=== PATIENT | male | born 1980 | race Caucasian/White ===

== ENCOUNTER 2018-02-11 16:07 | Emergency (ER) | payer OTHER ==
--- NOTE | 2018-02-11 17:51 | RADIOLOGY REPORT (SQ) ---
EXAM DESCRIPTION: CHEST 2 VIEWS COMPLETED DATE/TIME: 02/11/2018 5:38 pm REASON FOR STUDY: sob/cough COMPARISON: None. EXAM PARAMETERS: NUMBER OF VIEWS: two views TECHNIQUE: Digital Frontal and Lateral radiographic views of the chest acquired. RADIATION DOSE: NA LIMITATIONS: none FINDINGS: LUNGS AND PLEURA: No opacities, masses or pneumothorax. No pleural effusion. MEDIASTINUM AND HILAR STRUCTURES: No masses or contour abnormalities. HEART AND VASCULAR STRUCTURES: Heart normal size. No evidence for failure. BONES: No acute findings. HARDWARE: None in the chest. OTHER: No other significant finding. IMPRESSION: NO ACUTE RADIOGRAPHIC FINDING IN THE CHEST. TECHNICAL DOCUMENTATION: JOB ID: [id number] [employer]- All Rights Reserved Reading location - IP/workstation name: [email or web address]
[2018-02-11 18:58] LABS: ABSOLUTE EOSINOPHILS # (AUTO) 0.5 10^3/uL (0.0-0.6); ABSOLUTE LYMPHOCYTES (AUTO) 1.9 10^3/uL (0.5-4.7); ABSOLUTE MONOCYTES (AUTO) 0.6 10^3/uL (0.1-1.4); ABSOLUTE NEUT (AUTO) 2.8 10^3/uL (1.7-8.2); BASOPHILS % (AUTO) 0.8 % (0-2); EOSINOPHILS % (AUTO) 7.9 % (0-6); HEMATOCRIT 39.6 % (37.9-51.0); HEMOGLOBIN 13.6 g/dL (13.5-17.0); LYMPHOCYTES % (AUTO) 32.8 % (13-45); MEAN CORPUSCULAR HEMOGLOBIN 28.9 pg (27.0-33.4); MEAN CORPUSCULAR HGB CONC 34.3 g/dL (32.0-36.0); MEAN CORPUSCULAR VOLUME 84 fl (80-97); MONOCYTES % (AUTO) 10.3 % (3-13); PLATELET COUNT 265 10^3/uL (150-450); RED BLOOD COUNT 4.71 10^6/uL (4.35-5.55); RED CELL DISTRIBUTION WIDTH 12.7 % (11.5-14.0); SEGMENTED NEUTROPHILS % (AUTO) 48.2 % (42-78); TOTAL CELLS COUNTED % (AUTO) 100 %; WHITE BLOOD COUNT 5.8 10^3/uL (4.0-10.5)
[2018-02-11 19:14] LABS: ANION GAP 13 (5-19); BLOOD UREA NITROGEN 19 mg/dL (7-20); CALCIUM 9.8 mg/dL (8.4-10.2); CARBON DIOXIDE 30 mmol/L (22-30); CHLORIDE 101 mmol/L (98-107); GLUCOSE 95 mg/dL (75-110); POTASSIUM 3.2 mmol/L (3.6-5.0); SODIUM 144.1 mmol/L (137-145)
--- NOTE | 2018-02-11 19:47 | ER Document Report ---
ED Blood Pressure Problem - General Chief Complaint: High Blood Pressure Stated Complaint: BLOOD PRESSURE ISSUE Time Seen by Provider: 02/11/18 17:32 Mode of Arrival: Ambulatory Information source: Patient Notes: Patient was referred from his family's doctor's office due to an elevated blood pressure of 190/120. He received 0.2 of clonidine however blood pressure was not significantly decreased the patient was referred here to the emergency department. Patient denies any headache. He states over the last couple of days she has had some cough and congestion and shortness of breath. He states this was the main reason he went to his family physician. Symptoms have been intermittent. Nothing makes them better or worse. There is no known radiation symptoms. They have been mild to moderate. TRAVEL OUTSIDE OF THE [place] IN LAST 30 DAYS: No - Related Data Allergies/Adverse Reactions: No Known Allergies Allergy (Unverified 02/11/18 16:12) Past Medical History - General Information source: Patient - Social History Smoking Status: Never Smoker Frequency of alcohol use: None Drug Abuse: None Family History: Reviewed & Not Pertinent Patient has suicidal ideation: No Patient has homicidal ideation: No - Past Medical History Cardiac Medical History: Reports: Hx Hypertension Renal/ Medical History: Denies: Hx Peritoneal Dialysis Review of Systems - Review of Systems Constitutional: denies: Chills, Fever Cardiovascular: denies: Chest pain, Palpitations Respiratory: Cough, Short of breath -: Yes All other systems reviewed and negative Physical Exam - Vital signs Vitals: Temp Pulse Resp BP Pulse Ox 97.9 F 73 16 170/98 H 96 02/11/18 16:36 02/11/18 16:36 02/11/18 16:36 02/11/18 16:36 02/11/18 16:36 Interpretation: Normal, Hypertensive - General General appearance: Appears well, Alert - HEENT Head: Normocephalic, Atraumatic Eyes: Normal Pupils: PERRL - Respiratory Respiratory status: No respiratory distress Chest status: Nontender Breath sounds: Normal Chest palpation: Normal - Cardiovascular Rhythm: Regular Heart sounds: Normal auscultation Murmur: No - Abdominal Inspection: Normal Distension: No distension Bowel sounds: Normal Tenderness: Nontender Organomegaly: No organomegaly - Back Back: Normal, Nontender - Extremities General upper extremity: Normal inspection, Nontender, Normal color, Normal ROM , Normal temperature General lower extremity: Normal inspection, Nontender, Edema, Normal color, Normal ROM, Normal temperature, Normal weight bearing. No: Giuseppe's sign - Neurological Neuro grossly intact: Yes Cognition: Normal Orientation: AAOx4 Deerton Coma Scale Eye Opening: Spontaneous [place] Coma Scale Verbal: Oriented Saman Coma Scale Motor: Obeys Commands Deerton Coma Scale Total: 15 Speech: Normal Motor strength normal: LUE, RUE, LLE, RLE Sensory: Normal - Psychological Associated symptoms: Normal affect, Normal mood - Skin Skin Temperature: Warm Skin Moisture: Dry Skin Color: Normal Course - Re-evaluation Re-evalutation: 02/11/18 19:44 Some of patient symptoms would be consistent with early CHF. These include shortness of breath, congestion, elevated blood pressure and an elevated BNP. I am going to start the patient on a low-dose Lasix and have him follow-up with his family physician. - Vital Signs Vital signs: Temp Pulse Resp BP Pulse Ox 97.9 F 73 16 170/98 H 96 02/11/18 16:36 02/11/18 16:36 02/11/18 16:36 02/11/18 16:36 02/11/18 16:36 - Laboratory Result Diagrams: 02/11/18 18:35 02/11/18 18:35 Laboratory results interpreted by me: 02/11/18 02/11/18 02/11/18 18:35 18:35 18:35 Eosinophils % 7.9 H Potassium 3.2 L Creatinine 1.28 H NT-Pro-B Natriuret Pep 913 H - Diagnostic Test Radiology reviewed: Image reviewed, Reports reviewed - I reviewed both images of the two-view chest x-ray. No evidence of acute pathology. Discharge - Discharge Clinical Impression: CHF (congestive heart failure) Qualifiers: Heart failure type: unspecified Heart failure chronicity: acute Qualified Code( s): I50.9 - Heart failure, unspecified Condition: Stable Disposition: HOME, SELF-CARE Instructions: High Blood Pressure, Requiring Treatment ([facility]), Congestive Heart Failure ([facility]), Lasix Additional Instructions: Please call your primary care physician first thing in the morning. Please tell him that your BNP was elevated to 900. Please take your labs with you to see her family physician. Please discuss possible cardiology referral. Prescriptions: Furosemide [Lasix 20 mg Tablet] 20 mg PO QAM #30 tablet Forms: Return to Work
[2018-02-11 20:01] VITALS: BP 180/98
== END 2018-02-11 20:01 | disposition home or self-care (01) ==
LOC: ER 16:07
DX: I11.0 Hypertensive heart disease with heart failure (principal); I50.9 Heart failure, unspecified; R05 Cough; R06.02 Shortness of breath
CPT/HCPCS: 36415; 71046; 80048; 83880; 85025; 99283

== ENCOUNTER 2020-08-31 16:28 | Emergency (ER) | payer OTHER ==
[2020-08-31] MEDS ORDERED: OXYMETAZOLINE HCL 0.05% NASAL SPRAY 15 ML BOTTLE NASL ONE (16:44)
--- NOTE | 2020-08-31 16:48 | ER Document Report ---
ED Medical Screen (RME) - General Stated Complaint: NOSE BLEED Time Seen by Provider: 08/31/20 16:42 Mode of Arrival: Ambulatory Information source: Patient Notes: 38-year-old male patient presents emergency department chief complaint of nosebleed. Patient reports he has been under a lot of stress over the last week. He had a nosebleed last week. Today he had another nosebleed while he was at work. He states he went to the urgent care where they found him to have significantly elevated blood pressure. He does have a history of hypertension, he is compliant with his hypertension medications. He denies any chest pain or shortness of breath. He does report a mild headache for the last few days. Again he reports significant stressors at home and work. Patient has some packing in place that was placed by urgent care, he states that did not put any Afrin in his nose as the urgent care did not have any. There is a lot of dried blood around his nose, dressing and short. I have greeted and performed a rapid initial assessment of this patient. A comprehensive ED assessment and evaluation of the patient, analysis of test results and completion of the medical decision making process will be conducted by additional ED providers. I have specifically instructed the patient or family members with the patient to immediately return to any nursing staff should anything change in the patient's condition or with their chief complaint. TRAVEL OUTSIDE OF THE [place] IN LAST 30 DAYS: No - Related Data Allergies/Adverse Reactions: No Known Allergies Allergy (Unverified 02/11/18 16:12) Past Medical History - Past Medical History Cardiac Medical History: Reports: Hx Hypertension Renal/ Medical History: Denies: Hx Peritoneal Dialysis Physical Exam - Vital signs Vitals: Temp Pulse Resp BP Pulse Ox 98.1 F 80 18 210/128 H 99 08/31/20 16:31 08/31/20 16:31 08/31/20 16:31 08/31/20 16:31 08/31/20 16:31 Course - Vital Signs Vital signs: Temp Pulse Resp BP Pulse Ox 98.1 F 80 18 210/128 H 99 08/31/20 16:31 08/31/20 16:31 08/31/20 16:31 08/31/20 16:31 08/31/20 16:31
[2020-08-31] MEDS ORDERED: CLONIDINE HCL 0.1 MG TABLET PO ONE (17:50)
[2020-08-31 19:29] VITALS: BP 216/105
[2020-08-31] MEDS ORDERED: DEXAMETHASONE SOD PHOS INJ 10 MG/1 ML VIAL IV ONE (19:47)
[2020-08-31] MEDS ORDERED: IPRATROPIUM/ALBUTEROL 0.5-2.5 MG/3 ML AMPUL NEB ONE (19:48)
--- NOTE | 2020-08-31 20:15 | ER Document Report ---
ED ENT - General Chief Complaint: Nose Bleed Stated Complaint: NOSE BLEED Time Seen by Provider: 08/31/20 16:42 Mode of Arrival: Ambulatory Information source: Patient, Relative Notes: Patient is a 40-year-old male comes emergency room with a complaint of epistasis. Patient states that it started right after school. 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 Patient does state that he is under lots of stress recently had a little bit of a nosebleed 2 days ago but it went away on its own. Patient also noted to have a history of hypertension. Has been noted to have difficulty controlling it. Patient also has not taken his blood pressure medication today. Patient denies any known traumatic events to the right nare. He currently sees a space studies faculty member for his blood pressure and is due to follow-up with him soon. And he also has a primary care provider that he sees. He currently takes Benicar, labetalol and Lasix. Patient does not smoke drink or do drugs. TRAVEL OUTSIDE OF THE [place] IN LAST 30 DAYS: No - HPI Patient complains to provider of: Nose problem Onset: Just prior to arrival Onset/Duration: Sudden Severity: Mild Pain Level: 2 Context: denies: Injury, Travel Location of pain: Nose Associated symptoms: Nose bleed Similar symptoms previously: No Recently seen / treated by doctor: No - Related Data Allergies/Adverse Reactions: No Known Allergies Allergy (Verified 08/31/20 17:02) Past Medical History - General Information source: Patient - Social History Smoking Status: Never Smoker Cigarette use (# per day): No Chew tobacco use (# tins/day): No Smoking Education Provided: No Frequency of alcohol use: None Drug Abuse: None Lives with: Family Family History: Reviewed & Not Pertinent Patient has homicidal ideation: No - Past Medical History Cardiac Medical History: Reports: Hx Hypertension Renal/ Medical History: Denies: Hx Peritoneal Dialysis Review of Systems - Review of Systems Constitutional: No symptoms reported EENT: See HPI, Other - Epistaxis Cardiovascular: No symptoms reported Respiratory: No symptoms reported Gastrointestinal: No symptoms reported Genitourinary: No symptoms reported Male Genitourinary: No symptoms reported Musculoskeletal: No symptoms reported Skin: No symptoms reported Hematologic/Lymphatic: No symptoms reported Neurological/Psychological: No symptoms reported -: Yes All other systems reviewed and negative Physical Exam - Vital signs Vitals: Temp Pulse Resp BP Pulse Ox 98.1 F 80 18 210/128 H 99 08/31/20 16:31 08/31/20 16:31 08/31/20 16:31 08/31/20 16:31 08/31/20 16:31 Interpretation: Hypertensive - Notes Notes: PHYSICAL EXAMINATION: GENERAL: Well-appearing, well-nourished and in no acute distress. HEAD: Atraumatic, normocephalic. EYES: Pupils equal round and reactive to light, extraocular movements intact, sclera anicteric, conjunctiva are normal. ENT: Examination patient's her concern is his nose. Examination of the nose shows the right nare to have slow bleeding currently. Examination with the autoscope shows no anterior bleeding currently just some moist blood. No apparent active bleed at this time. But unable to see into the turbinates. The left nare has dried crusty blood. No active bleeding. NECK: Normal range of motion, supple without lymphadenopathy LUNGS: Breath sounds clear to auscultation bilaterally and equal. No wheezes rales or rhonchi. HEART: Regular rate and rhythm without murmurs NEUROLOGICAL: Normal speech, normal gait. Normal sensory, motor exams PSYCH: Normal mood, normal affect. SKIN: Warm, Dry, normal turgor, no rashes or lesions noted. Course - Re-evaluation Re-evalutation: 08/31/20 20:11 Procedure note. Patient came in with a slight amount of bleeding on the right nare. Rather it then using a [employer] at this time I decided to use Afrin nasal spray saturated on cotton balls. I saturated brought for the cotton balls and placed in the right nare. I waited approximately an hour and removed it and so far bleeding has subsided. There was no sign of any type of a anterior bleed noted on initial examination. Patient tolerated the packing well and also the removal well. Patient's blood pressure remains somewhat elevated still after receiving clonidine. Patient admitted he has not taken blood pressure medications today. When approached about further intervention patient refused at this time because he is not taking his blood pressure medications and he has close follow-up with his primary care provider as well as his space studies faculty member. 09/01/20 03:07 - Vital Signs Vital signs: Temp Pulse Resp BP Pulse Ox 98.1 F 74 20 216/105 H 95 08/31/20 19:27 08/31/20 19:27 08/31/20 19:27 08/31/20 19:27 08/31/20 19:30 08/31/20 20:12 Also to note patient has had a difficult time with his blood pressure here in the emergency room as well. Last blood pressure reading was 200/104. Although patient has not taken his blood pressure medication this evening. Also to note that patient states that his normal blood pressure runs about 180/99. 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 I have gone in and have a discussion with patient after attempting to clonidine without any relief of his symptoms or very minimal relief and offered to go ahead and place an IV in the patient and decrease his blood pressure through IV. Patient refused this method at this time. He states he knows this because he has not taken his blood pressure medication. He will go home take his blood pressure medication the labetalol and will monitor his blood pressure with his home machine. Patient understands that he is at high risk for stroke with these type of numbers. Patient is an educated educator. 08/31/20 20:14 Also to note that is at bedside and she agrees with this plan of care and feels he will do much better at home than placing him on IVs here in the hospital. Discharge - Discharge Clinical Impression: Epistaxis not due to trauma Hypertension Qualifiers: Hypertension type: unspecified Qualified Code(s): I10 - Essential (primary) hypertension Condition: Stable Disposition: HOME, SELF-CARE Instructions: High Blood Pressure ([facility]), Nosebleed Instructions ([facility]) Additional Instructions: First thing you home take your blood pressure medication. Monitor your blood pressure at home and keep a log of it. Take it first thing in the morning when you wake up late morning late afternoon and before bed. Also keep track your heart rate. If your blood pressure is staying above 180/80 you need to contact your primary care provider first thing in the morning. Should you have any concerns or problems or any elevation in your blood pressure after taking your blood pressure medication return to ER for reevaluation. As far as nosebleed goes the Afrin nasal spray can be used to stop the bleeding as have instructed you on saturating the cotton balls and placing them in the nose for approximately 30 minutes. If continues to have nosebleeds you will need to see a ears nose and throat physician and also your primary care provider. The blood pressure may also be up slightly not to because of the heavy dose of Afrin use. Forms: Elevated Blood Pressure, Return to Work
== END 2020-08-31 20:29 | disposition home or self-care (01) ==
LOC: ER 16:28
DX: R04.0 Epistaxis (principal); I10 Essential (primary) hypertension
CPT/HCPCS: 99283; 30901; J3490